=== PATIENT | male | born 1950 | race Caucasian/White ===

== ENCOUNTER 2018-07-22 10:58 | Emergency (ER) | payer MEDICARE, SELFPAY ==
[2018-07-22 11:00] VITALS: BP 148/96; PULSE 58; RESP 16; TEMP 36.6; O2SAT 99; BMI 26.7
--- NOTE | 2018-07-22 11:23 | ED.VISSUMM ---
- ER Visit Summary Date of Service: 07/22/18 Chief Complaint: [] Concern for rectal hemorrhoids History of Present Illness: The patient is a 67 M [] rectal hemorrhoids, cardiac stents he states he has been in very good health but last few days he feels that there is a hemorrhoid that keeps falling in and out of his rectal area he pushes it back and he has been using [id number] cream it has improved, he contacted his physicians a referral to a surgeon as he believes he saw surgeon in the past who did surgery for hemorrhoids but the physicians did not call him back and he came to the emergency department. No fever no cough no abdominal pain normal bowel bladder habits and again his cardiac status and although health conditions are very stable Physical Examination: [] Is resting comfortably in the bed reading what looks like an E book he has trouble with his eyes relating to the condition his lungs sound clear heart tones normal abdomen soft nontender the rectal exam shows what appears to be a very small hemorrhoid but the 6 o'clock position it is nontender nonfluctuant really nonpainful the stool is brown and soft The patient reports had prior colonoscopies are unremarkable Test Results: [] Emergency Department Course and Treatment: [] Strength patient this time the exact etiology of all the above is not really clear I cannot really appreciate a hemorrhoid that is prolapsing or when the thrombosed there is no signs of abscess, I explained he requires more definitive management he will be given Anusol HC suppositories he will be given referral to local surgeon as of explained he may require more definitive management etc. he will follow-up and return for change in symptoms Treatment Plan: [] Disposition: [] Home stable Impression: [] Concern for rectal hemorrhoid This note was generated with [employer] dictation software. It may contain incorrect words, spelling, and punctuation that were not noted in review of the chart prior to signing ED Disposition - Plan for ED Patient: Chief Complaint: Other, Pain/Inj Referrals: Joey Cobb MD [Primary Care Provider] -
--- NOTE | 2018-07-22 11:25 | ED.DEP ---
ED Disposition - Plan for ED Patient: Chief Complaint: Other, Pain/Inj Instructions: Treating Hemorrhoids: Self-Care Prescriptions: Hydrocortisone [Anusol Hc] 25 mg RECTAL BID PRN PRN #10 suppos. PRN Reason: Hemorrhoids Referrals: Joey Cobb MD [Primary Care Provider] - Gem Elizabeth MD [STAFF PHYSICIAN] -
== END 2018-07-22 11:49 | disposition home or self-care (01) ==
LOC: ED 11:40
PROVIDERS: Emergency Provider Emergency Medicine; Family Provider Family Medicine; PCP Family Medicine
DX: K64.9 Unspecified hemorrhoids (principal); I25.10 Atherosclerotic heart disease of native coronary artery without angina pectoris; Z95.5 Presence of coronary angioplasty implant and graft; Z79.82 Long term (current) use of aspirin; Z79.02 Long term (current) use of antithrombotics/antiplatelets; Z79.899 Other long term (current) drug therapy
CPT/HCPCS: 99282